=== PATIENT | male | born 1990 | race Two or more races ===

== ENCOUNTER 2017-09-29 23:24 | Emergency (ER) | payer SELFPAY | END 2017-09-30 01:29 | disposition home or self-care (01) | LOC: D.ER 23:24 | DX: S81.812A Laceration without foreign body, left lower leg, initial encounter (principal); W26.9XXA Contact with unspecified sharp object(s), initial encounter; Y93.89 Activity, other specified; Y92.019 Unspecified place in single-family (private) house as the place of occurrence of the external cause ==